=== PATIENT | female | born 1995 | race Caucasian/White ===

== ENCOUNTER 2020-03-21 19:45 | Emergency (ER) | payer MEDICAID ==
[~2020-03-21] VITALS: Ht 162.6 cm; Wt 60.0 kg
[2020-03-21] MEDS ORDERED: HYDROCODONE/ACETAMINOPHEN 5/325MG TABLET PO ONE (22:45)
[2020-03-22 00:30] VITALS: BP 135/85
== END 2020-03-22 01:15 | disposition home or self-care (01) ==
LOC: ER 19:45
DX: S00.83XA Contusion of other part of head, initial encounter (principal); S20.212A Contusion of left front wall of thorax, initial encounter; S70.02XA Contusion of left hip, initial encounter; Y07.03 Male partner, perpetrator of maltreatment and neglect; Y04.2XXA Assault by strike against or bumped into by another person, initial encounter; Y93.89 Activity, other specified; Y92.89 Other specified places as the place of occurrence of the external cause; D32.9 Benign neoplasm of meninges, unspecified
CPT/HCPCS: 70486; 71101; 73502; 81025; 99285